=== PATIENT | male | born 1990 | race Caucasian/White ===

== ENCOUNTER 2017-06-16 09:57 | Emergency (ER) | payer BC ==
[~2017-06-16] VITALS: Ht 154.9 cm; Wt 50.0 kg
[2017-06-16 10:01] VITALS: BP 118/57; PULSE 94; RESP 16; TEMP 98.2
[2017-06-16] MEDS ORDERED: IBUPROFEN 600 MG TAB PO ONE (10:30)
[2017-06-16] MEDS ORDERED: ACETAMINOPHEN 325 MG TAB PO ONE (10:30)
--- NOTE | 2017-06-16 10:33 | PD ---
HPI Chief Complaint: Headache Time Seen by Provider: 10:14 Travel History International Travel<30 days: No Contact w/Intl Traveler<30days: No Traveled to known affect area: No History of Present Illness HPI 27-year-old male presents emergency department with sudden onset generalized malaise, body aches, fever, chills, sore throat, headache, dry cough , without nausea or vomiting. Decreased appetite is noted this morning. He reportedly had fever last evening but is unsure of the measurement. Patient states "everything hurts". No diarrhea is noted. He has no known drug allergies. PFS Past Medical History Medical other: Yes (CHRON BACK PAIN - OTC MEDS) Past Surgical History Surgical History: No Previous Surgery Social History Alcohol Use: Yes (SOCIAL) Tobacco Use: Yes (1/2 ppd) Substance Use: No Allergies-Medications (Allergen,Severity, Reaction): Coded Allergies: No Known Allergies (Unverified , 06/16/17) Reported Meds & Prescriptions Reported Meds & Active Scripts Active Tamiflu (Oseltamivir Phosphate) 75 Mg Cap 75 Mg PO BID 5 Days Review of Systems Except as stated in HPI: all other systems reviewed are Neg General / Constitutional: Positive: Fever, Chills Eyes: No: Visual changes HENT: Positive: Headaches, Sore Throat, Rhinitis, Rhinorrhea, Congestion, Earache, No: Vertigo, Lightheadedness, Nosebleed, Neck Stiffness, Neck Pain, Masses, Gingival Bleeding, Dental Difficulties, Ear Discharge Cardiovascular: No: Chest Pain or Discomfort Respiratory: Positive: Cough, No: Shortness of Breath, Wheezing Gastrointestinal: Positive: Loss of Appetite, No: Nausea, Vomiting, Diarrhea, Abdominal Pain Genitourinary: No: Dysuria Musculoskeletal: Positive: Myalgias, No: Pain Skin: No Rash Neurologic: No: Weakness Psychiatric: No: Depression Endocrine: No: Polydipsia Hematologic/Lymphatic: No: Easy Bruising Physical Exam Narrative GENERAL: Patient appears ill but not septic per SKIN: Warm and dry. Normal color. Normal turgor. No rash. HEAD: Atraumatic. Normocephalic. EYES: Pupils equal and round. No scleral icterus. No injection or drainage. ENT: No nasal bleeding. Mucous membranes pink and moist. TMs are clear bilaterally. Posterior pharynx is mildly injected but otherwise unremarkable. No sinus tenderness. Clear rhinitis is noted. NECK: Trachea midline. Supple and nontender. CARDIOVASCULAR: Regular rate and rhythm. RESPIRATORY: No accessory muscle use. Clear to auscultation. Breath sounds equal bilaterally. GASTROINTESTINAL: Abdomen soft, non-tender, nondistended. Hepatic and splenic margins not palpable. MUSCULOSKELETAL: Extremities without clubbing, cyanosis, or edema. No obvious deformities. NEUROLOGICAL: Awake and alert. No obvious cranial nerve deficits. Motor grossly within normal limits. Five out of 5 muscle strength in the arms and legs. Normal speech. PSYCHIATRIC: Appropriate mood and affect; insight and judgment normal. Data Data Last Documented VS Vital Signs Date Time Temp Pulse Resp B/P (MAP) Pulse Ox O2 Delivery O2 Flow Rate FiO2 06/16/17 10:01 98.2 94 16 118/57 (77) Orders Orders Influenzae A/B Antigen (06/16/17 10:23) Ibuprofen (Motrin) (06/16/17 10:30) Acetaminophen (Tylenol) (06/16/17 10:30) Ed Discharge Order (06/16/17 11:18) [facility] Medical Decision Making Medical Screen Exam Complete: Yes Emergency Medical Condition: Yes Differential Diagnosis Viral illness. Fever. Myalgias. Influenza. Narrative Course Patient is given 600 mg ibuprofen p.o. as well as 650 mg of acetaminophen p.o. Rapid influenza is sent to the lab. Rapid influenza is negative, however based on the patient's symptoms I feel treatment with Tamiflu 75 mg twice daily for 5 days is warranted. Patient is to rest, push fluids, take Tylenol ibuprofen as needed, and follow- up if symptoms worsen. Work note is given through Monday. Diagnosis Primary Impression: Influenza Patient Instructions: General Instructions, H1N1 Influenza (ED) Departure Forms: Work Release Enter return to work date: Jun 19, 2017 Additional Instructions: Patient is given 600 mg ibuprofen p.o. as well as 650 mg of acetaminophen p.o. Rapid influenza is sent to the lab. Rapid influenza is negative, however based on the patient's symptoms I feel treatment with Tamiflu 75 mg twice daily for 5 days is warranted. Patient is to rest, push fluids, take Tylenol ibuprofen as needed, and follow- up if symptoms worsen. Work note is given through Monday. Scripts Oseltamivir (Tamiflu) 75 Mg Cap 75 MG PO BID for Mgmt Viral Infection for 5 Days, #10 CAP 0 Refills Prov: Viel,Manuel C. MD 06/16/17 Disposition: 01 DISCHARGE HOME Condition: Stable Rudy Berry Jun 16, 2017 10:33
[2017-06-16] MEDS ORDERED: OSEL75 PO (11:16)
== END 2017-06-16 11:27 | disposition home or self-care (01) ==
LOC: NEPD 09:57
DX: J11.1 Influenza due to unidentified influenza virus with other respiratory manifestations (principal); F17.210 Nicotine dependence, cigarettes, uncomplicated
CPT/HCPCS: 87804; 99283